=== PATIENT | male | born 1980 | race Caucasian/White ===

== ENCOUNTER → 2017-09-12 16:58 | Outpatient (CLI) | payer BC, SELFPAY ==
--- NOTE | 2017-09-12 17:03 | XR_ITS ---
EXAM: XR cervical spine 5V HISTORY: ITS.REASON: LEFT SIDED NECK PAIN ORDERING PHYSICIAN: Arlene Dawkins PATIENT AGE: 37 years COMPARISON: None FINDINGS: Normal alignment. No fracture or dislocation. No lytic or blastic change. No significant degenerative change. The disc spaces are preserved. There is right apical pleural thickening with surgical clips in the right apex IMPRESSION: Negative cervical spine, no acute finding
== END ==
PROVIDERS: PCP Nurse Practitioner; Visit Provider Nurse Practitioner
DX: M54.2 Cervicalgia (principal)
CPT/HCPCS: 72050

== ENCOUNTER → 2017-09-28 07:43 | Outpatient (CLI) | payer BC, SELFPAY ==
--- NOTE | 2017-09-28 07:45 | MR_ITS ---
MR cervical spine wo con, MR 3-d myelogram/MRCP HISTORY: Bilateral Neck pain. Neck pain is intermittent. Pain when turning head to the left. Symptoms [id number]. ITS.REASON: LEFT SIDE NECK PAIN ORDERING PHYSICIAN: Arlene Dawkins PATIENT AGE: 37 years COMPARISON: Prior X-ray C-spine April 2013. TECHNIQUE: Standard multiplanar multiecho sequences are performed without contrast. 3-D MIP and myelographic images are also rendered and reviewed FINDINGS: Cranial cervical junction is normal. Cervical vertebral bodies appear intact. Generous volume osseous cervical canal Multilevel degenerative disc changes and cervical spondylosis most evident C4/5 C5-C6: . C2/3 disc intact & unremarkable. C3/4. Trace central disc prominence which only slightly indents anterior thecal sac at midline C4/5. Cervical spondylosis. Slight disc space narrowing. Uncovertebral joint hypertrophy most evident to the left-encroaches upon entry left foramen & slightly indents the left anterior corner of the thecal sac. Mild/moderate left foraminal encroachment. Mild on right. C5-C6. Cervical spondylosis. Diffuse endplate osteophytes posteriorly and spurring most evident to the right & left of midline. On the right there is a soft disc protrusion extending beyond this first. This moderate focal mixed disc protrusion indents, effaces the thecal sac to the right and just abuts the cervical cord right paracentral.. This disc protrusion extends 3.5 -4 mm posteriorly. May impinges upon the right ventral nerve root as well.. Mild hard disc to the left only slightly indents thecal sac to the left C6/7 disc intact neural foramen widely patent. C7/T1 disc intact. T1/T2 T2/T3 disc intact cord normal. 3-D MR myelogram image set shows a focal subtle mild indentation upon the thecal sac to the left at C4/5 & right at C5-6. The above features have apparently developed or become more apparent since plain films in 2012. Consider follow-up plain films to again correlate as I believe there should be additional current plain film findings particularly at C4/5 to the left ====IMPRESSION Cervical spondylosis at C5/C6 & C4/5 C5-C6.. Moderate Mixed disc protrusion right paracentral most notable at this level. . With moderate soft disc protrusion extending beyond the posterior spurring to abut the cervical cord right paracentral evident C4/5. Generous uncovertebral joint spurring yields moderate encroachment upon entry left foramen, and indents the left anterior corner of thecal sac. Generous volume underlyingOsseous cervical canal
== END ==
PROVIDERS: Family Provider Family Medicine; PCP Nurse Practitioner; Visit Provider Nurse Practitioner
DX: M54.2 Cervicalgia (principal)
CPT/HCPCS: 72141; 76376

== ENCOUNTER → 2017-10-18 12:25 | Outpatient (POV) | payer BC, SELFPAY | PROVIDERS: Family Provider Family Medicine; PCP Nurse Practitioner; Visit Provider Neurological Surgery | DX: Z00.00 Encounter for general adult medical examination without abnormal findings (principal) ==

== ENCOUNTER → 2018-08-01 15:07 | Outpatient (CLI) | payer BC, SELFPAY | PROVIDERS: PCP Nurse Practitioner; Visit Provider Nurse Practitioner | DX: G47.30 Sleep apnea, unspecified (principal) | CPT/HCPCS: 95806 ==

== ENCOUNTER → 2018-08-05 08:15 | Outpatient (CLI) | payer BC, SELFPAY | PROVIDERS: PCP Family Medicine; Visit Provider Family Medicine | DX: R05 Cough (principal); R06.02 Shortness of breath; R91.1 Solitary pulmonary nodule; R53.83 Other fatigue | CPT/HCPCS: 93017 ==

== ENCOUNTER → 2018-08-14 07:44 | Outpatient (CLI) | payer BC, SELFPAY ==
--- NOTE | 2018-08-14 07:49 | CA_ITS ---
PROCEDURE: 2-D M-mode and color Doppler study INDICATIONS FOR THE TEST: Chest pain COPD Heart Murmur Tobacco Smoking Palpitations Fatigue Syncope Edema Hypertension Diabetes Mellitus Rheumatic Fever SOB++BLOOD Obesity Hyperlipidemia+ Family History HD Additional History asthma PATIENT INFORMATION HEIGHT: 71 WEIGHT:170 GENDER: Male B/P:110/65 2-D/M-MODE INTERPRETATION: 2-D MEASUREMENTS OBSERVED VALUES IN CMS Right Ventricular Dimension (RVDd) 2.6 Interventricular Septum (Thickness)(IVsd) 1.0 Left Ventricular Internal Dimensions(LVIDd) 4.1 Left Ventricular Posterior Wall (Thickness)(LVPWd) 0.9 Aortic Root 2.6 Aortic Cusp Separation 2.4 Left Atrial Dimensions (LAD) 2.7 2D 1. Left atrium is normal size, left ventricle is normal size, is no concentric left ventricular hypertrophy, visually estimated ejection fraction 55% with no regional wall motion abnormality. 2. The right atrium and right ventricle are normal size and contractility. 3. The aortic, mitral and tricuspid valves grossly normal. 4. The pulmonic valve is poorly present. 6. No significant pericardial effusion noted. DOPPLER INTERROGATION: Doppler interrogation of the aortic, mitral and tricuspid valvular presence of mild mitral and tricuspid regurgitation, tricuspid regurgitation jet velocity is inadequate for calculation of the right ventricular systolic pressure, diastolic parameters are within normal range. CONCLUSION: 1. Normal left ventricular size, preserved left ventricular systolic function, visually estimated ejection fraction of 55% regional wall motion abnormality, diastolic parameters are within normal range. 2. Mild mitral and tricuspid regurgitation 3. No significant pericardial effusion noted.
--- NOTE | 2018-08-14 08:18 | CT_ITS ---
CT chest w con HISTORY: ITS.REASON: COUGH,LUNG NODULE,SOB,FATIGUE ORDERING PHYSICIAN: Jake Colvin MD PATIENT AGE: 37 years COMPARISON: None TECHNIQUE: Axial images obtained following the administration of 75 mL of Optiray 350. Sagittal, and coronal reformatted images are also generated and reviewed. All CT scans at the facility use one or more dose reduction, viz: automated exposure control, ma/kV adjustment per patient size (including targeted exams where dose is matched to indication, i.e. head), or iterative reconstruction technique. FINDINGS: No mediastinal or hilar mass. No evidence of aortic aneurysm, dissection, or central pulmonary embolus. Normal heart size. Fibronodular changes are present in the right lung apex. There is some irregular increased density in the right lower lobe anteriorly and laterally also may represent fibrotic changes. Postsurgical changes are present in the right upper lobe inferiorly. Calcified granuloma is present in the left lung base. No central obstructing lesions are evident.. No acute bony anomalies. Upper abdominal images demonstrates a liver lesion in the hepatic dome which measures approximately 2.4 x 1.2 cm with peripheral contrast puddling and may represent a hemangioma. CT or MRI with hemangioma protocol may confirm. No acute bony findings. IMPRESSION: 1. Scattered areas of parenchymal pleural scarring in the lungs with postsurgical changes of the right upper lobe. Calcified granuloma left lower lobe. No acute finding of the chest. 2. 2.4 cm lesion of the hepatic dome with peripheral enhancement and puddling which may represent a hemangioma and may be confirmed with CT or MRI with hemangioma protocol
== END ==
PROVIDERS: PCP Family Medicine; Visit Provider Family Medicine
DX: R05 Cough (principal); R91.1 Solitary pulmonary nodule; R06.02 Shortness of breath; R53.83 Other fatigue
CPT/HCPCS: 71260; 93306; Q9967

== ENCOUNTER → 2018-09-09 09:32 | Outpatient (CLI) | payer BC, SELFPAY ==
--- NOTE | 2018-09-09 09:42 | CT_ITS ---
CT abdomen without and with contrast CLINICAL INDICATION: Follow-up liver lesion ITS.REASON: LIVER TUMOR ORDERING PHYSICIAN: Arlene Dawkins PATIENT AGE: 38 years COMPARISON: 08/14/2018 TECHNIQUE: Axial images obtained without and with contrast with sagittal and coronal reformats. All CT scans at the facility use one or more dose reduction, viz: automated exposure control, ma/kV adjustment per patient size (including targeted exams where dose is matched to indication, i.e. head), or iterative reconstruction technique. PROCEDURE: Oral Contrast: None IV Contrast: 75 mL's Optiray 350. FINDINGS: There are chronic changes in the right lung base laterally consistent with scarring. Unenhanced images demonstrates a 2.8 x 1.8 cm isodense lesion in the right hepatic lobe anteriorly within segment 8. This shows fairly intense peripheral enhancement on the arterial phase images and fairly homogeneous enhancement on the portal phase images similar to the contrast enhancement of the aorta and only mild enhancement on the 10 minute delayed images. This is consistent with a hemangioma. No other liver lesions are evident. The spleen, pancreas, adrenal glands, and right kidney are unremarkable. The left kidney lies in the central aspect of the pelvis consistent with a pelvic kidney. No intestinal obstruction or free air. No evidence of aortic aneurysm. No acute bony findings. IMPRESSION: Hepatic lesion in segment 8 is felt to represent a hemangioma. Consider 6 month follow-up to confirm stability. This can be performed without contrast as we do have an unenhanced study on today's exam. Pelvic kidney on the left
--- NOTE | 2018-09-09 10:00 | HMH.ITSHM ---
Current Home Medications as stated by this patient Fili Sagastume II or customer response representative. []SYNTHYROID
[2018-09-09 10:40] VITALS: PULSE 78; PULSE 82
== END ==
PROVIDERS: PCP Family Medicine; Visit Provider Nurse Practitioner
DX: D49.9 Neoplasm of unspecified behavior of unspecified site (principal); R06.02 Shortness of breath; L90.5 Scar conditions and fibrosis of skin
CPT/HCPCS: 74160; 74170; 94060; 94640; Q9967

== ENCOUNTER → 2018-09-11 12:32 | Outpatient (CLI) | payer BC, SELFPAY | PROVIDERS: PCP Family Medicine; Visit Provider Family Medicine | DX: R91.1 Solitary pulmonary nodule (principal); K76.89 Other specified diseases of liver | CPT/HCPCS: 74150 ==

== ENCOUNTER → 2019-05-26 07:46 | Outpatient (CLI) | payer BC, SELFPAY ==
--- NOTE | 2019-05-26 07:49 | CT_ITS ---
PROCEDURE: CT ABDOMEN WO CON CLINICAL HISTORY: HEPATIC LESION Follow-up liver lesion COMPARISON: ABDPELW/O CT ABD PELVIS W/O CONTRAST from 05/03/[address] abdomen wo/w con from 09/09/2018 TECHNIQUE: Axial images obtained with sagittal and coronal reformats. All CT scans at the facility use one or more dose reduction, viz: automated exposure control, ma/kV adjustment per patient size (including targeted exams where dose is matched to indication, i.e. head), or iterative reconstruction technique. FINDINGS: There is a stable 3 by 1.9 cm hypodense lesion in the right hepatic lobe anteriorly and superiorly as previously described not significantly changed and was previously felt to represent a hemangioma based on the enhancement characteristics. No new liver lesions are evident. The spleen, adrenal glands, and pancreas have an unremarkable appearance. The right kidney has an unremarkable appearance. The left kidney is in the central pelvic region and is incompletely imaged. No intestinal obstruction or free air. IMPRESSION: Stable CT appearance of the right hepatic lobe lesion measuring 3 x 1.9 cm. No change with no acute finding Left-sided pelvic kidney Dictated by: Warren Morgan MD 05/27/2019 12:56 Electronically signed by Warren Morgan MD in [place] 05/27/2019 12:56
== END ==
PROVIDERS: PCP Family Medicine; Visit Provider Nurse Practitioner
DX: K76.9 Liver disease, unspecified (principal)
CPT/HCPCS: 74150

== ENCOUNTER → 2020-02-05 16:27 | Outpatient (CLI) | payer BC, SELFPAY ==
[2020-02-05 17:01] LABS: Basophils % 0.3 % (0.1-2.0); Eosinophils # 0.1 K/mm3 (0.0-0.4); Eosinophils % 0.9 % (0.1-12.0); Hematocrit 47.6 % (42.0-52.0); Hemoglobin 16.5 g/dL (14.1-18.0); Lymphocytes # 2.5 K/mm3 (0.7-4.5); Lymphocytes % 30.1 % (10-50); Mean Corpuscular HGB Conc 34.7 g/dL (31.8-35.4); Mean Corpuscular Hemoglobin 32.3 pg (27.0-31.2); Mean Corpuscular Volume 93.1 fl (80-94); Mean Platelet Volume 7.6 fl (7.4-10.4); Monocytes # 0.5 K/mm3 (0.1-1.0); Monocytes % 6.4 % (1.7-9.3); Neutrophils # 5.1 K/mm3 (1.8-7.8); Neutrophils % 62.3 % (37.0-80.0); Platelet Count 274 K/mm3 (142-424); Red Blood Count 5.12 M/mm3 (4.60-6.20); White Blood Count 8.2 K/mm3 (4.8-10.8)
[2020-02-05 20:18] LABS: Chloride 106 mmol/L (98-107)
[2020-02-05 20:19] LABS: Potassium 4.4 mmoL/L (3.5-5.1); Sodium 141 mmol/L (136-145)
[2020-02-05 20:21] LABS: Alanine Aminotransferase 32 U/L (12-78); Albumin Level 4.5 g/dl (3.5-5.0); Albumin/Globulin Ratio 1.7 (1.1-1.8); Alkaline Phosphatase 65 U/L (38-126); Anion Gap 14.4 mEq/L (5-15); Aspartate Amino Transferase 28 U/L (17-59); Bilirubin,Total 0.5 mg/dl (0.2-1.3); Blood Urea Nitrogen 15 mg/dl (9-20); Carbon Dioxide 25 mmol/L (22.0-30.0); Cholesterol 179 mg/dl (140-200); Estimated Glomerular Filt Rate 93 ml/min (>60); GFR (African American) 113 ML/MIN (>60); Globulin 2.6 g/dL (1.3-3.2); Total Protein,Serum 7.1 g/dl (6.3-8.2); Triglycerides 160 mg/dl (30-150); VLDL Cholesterol 32 mg/dL (0-40)
[2020-02-05 20:22] LABS: Calcium 9.2 mg/dl (8.4-10.2); Glucose 79 mg/dl (74-100); Magnesium 2.2 mg/dl (1.6-2.3)
[2020-02-05 20:33] LABS: Direct LDL Cholesterol 105.12 mg/dL (100-129)
[2020-02-05 21:39] LABS: Chol/HDL Ratio 4.1 (1-3.5); HDL Cholesterol 44 mg/dl (40-60)
== END ==
PROVIDERS: Visit Provider Nurse Practitioner Family
DX: R19.7 Diarrhea, unspecified (principal); R19.5 Other fecal abnormalities; R03.0 Elevated blood-pressure reading, without diagnosis of hypertension
CPT/HCPCS: 36415; 80053; 80061; 83735; 85025

== ENCOUNTER 2020-06-11 13:32 | Emergency (ER) | payer BC, SELFPAY ==
[2020-06-11 14:00] VITALS: BP 129/82; PULSE 80; RESP 19; TEMP 37.1; O2SAT 98; BMI 23.7
--- NOTE | 2020-06-11 14:19 | HMH.EDUTC ---
[facility] [place] Disposition Clinical Impression: Viral syndrome, Exposure to COVID-19 virus Disposition: Home, Self-Care Condition on Discharge: Good Instructions: Preventing the Spread of Coronavirus Discharge Instructions Additional Instructions: Drink plenty of fluids. Take tylenol for pain or fever. Return if you begin to have difficulty breathing. Follow up with your regular doctor. GO TO THE ER FOR ANY WORSENING SYMPTOMS Referrals: Jake Colvin MD [Primary Care Provider] - Time of Disposition: 14:29 Medical Decision Making - Medical Records Medical records reviewed: No: I reviewed the patient's medical records. - Georgi Inquiry Pt receiving controlled substance: No Vital Signs: 06/11/20 14:00 Temperature 98.7 F Temperature Source Oral Pulse Rate [Right Brachial] 80 Respiratory Rate 19 Blood Pressure [Right Arm] 129/82 Blood Pressure Mean [Right Arm] 97 Blood Pressure Source [Right Arm] Automatic Cuff Blood Pressure Position [Right Arm] Sitting 02 Sat by Pulse Oximetry 98 Oxygen Delivery Method Room Air Orders (Tests/Meds): ORDERS Category Date Time Status Covid-19 Nasal PCR Sendout [facility] 06/11/20 13:48 Ordered [facility] [place] HPI - General Stated complaint: covid exposure Time Seen by Provider: 06/11/20 14:19 Mode of Arrival: Ambulatory Source of Information: Patient Limitations: No Limitations Description of Symptoms (Recalled from Triage Doc. by RN): PATIENT C/O BODY ACHES, SORE THROAT AND FATIGUE X 2 DAYS. WAS EXPOSED TO COVID THROUGH WORK HEENT Symptoms (Recalled from RN notes): Yes Resp Symptoms (Recalled from RN notes): No Skin Symptoms (Recalled from RN notes): No MS Symptoms (Recalled from RN notes): No Functional Status (Recalled from RN notes): WNL - History of Present Illness Provider Complaint: He states that he has been exposed to covid at his work place. He has had chilling, sore throat, and mild cough for the past 3 days. He feels some better today. - Related Data Home Medications Medication Instructions Recorded Confirmed Levothyroxine Sodium 100 mcg PO DAILY 06/11/20 06/11/20 [Levothyroxine 100mcg (0.1MG) Tab] lisinopriL [Lisinopril 10mg Tab] 10 mg PO DAILY 06/11/20 06/11/20 Allergies Allergy/AdvReac Type Severity Reaction Status Date / Time Penicillins [PENICILLINS] Allergy Unknown Verified 11/07/19 11:26 - Worker's Comp Is this a Worker's Comp case?: No [facility] History - Hepatitis A Screen Drug use history?: No High risk sexual behaviors?: No History of sexually transmitted infection?: No Currently employed?: No Childcare worker?: No Do you have indoor plumbing?: Yes Do you have electricity?: Yes Attestation statement:: This patient has been screened for Hepatitis A risk factors. I have reviewed the patient's past medical history: Yes Other Medical History: Reports: Thyroid Disease Laterality Cases: Bilateral: Myringotomy (Ear Tubes) Other Surgeries: Yes: No Previous Surgery Amputation: No Fractures: No Comment: collapsed lung x 2 - Social History Smoking Status: Former smoker Tobacco Type: smokeless tobacco Alcohol Intake: never Alcohol Intake Frequency:: holidays/special occasions only Substance Use Type: denies use Occupational Status: other Housing: other Household Members: family Family Hx:: No significant family history ROS Obtained: Yes All systems reviewed & no additional complaints - Constitutional Constitutional: Reports system reviewed and no additional complaints, except as docu - Eyes Eyes: Reports system reviewed and no additional complaints, except as docu - ENT Ears, Nose, Mouth, and Throat: Reports system reviewed and no additional complaints, except as docu - Cardiovascular Cardiovascular: Reports system reviewed and no additional complaints, except as docu - Respiratory Respiratory: Yes system reviewed and no additional complaints, except as docu - Gastrointestinal Gastrointestingal:
[2020-06-11 14:24] LABS: UTC Strep Screen (Rapid) Negative (Negative)
[2020-06-11 14:46] VITALS: BP 129/82; PULSE 80; RESP 19; TEMP 37.1; O2SAT 98
[2020-06-13 09:33] LABS: Covid-19 Nasal PCR Sendout UK Detected
--- NOTE | 2020-06-13 09:51 | PC.NURSE ---
Patient notified of positive COVID results. Educated on quarantine.
== END 2020-06-11 14:48 | disposition home or self-care (01) ==
PROVIDERS: Emergency Provider Nurse Practitioner Family; PCP Family Medicine
DX: U07.1 COVID-19 (principal); I10 Essential (primary) hypertension; E03.9 Hypothyroidism, unspecified; Z88.0 Allergy status to penicillin; Z87.891 Personal history of nicotine dependence; Z79.899 Other long term (current) drug therapy
CPT/HCPCS: 87880; 99202; U0003

== ENCOUNTER → 2020-06-15 13:32 | Outpatient (CLI) | payer BC, SELFPAY ==
--- NOTE | 2020-06-15 13:37 | XR_ITS ---
PROCEDURE: XR CHEST PORTABLE CLINICAL HISTORY: COVID Cough COMPARISON: CR CXR CHEST(2 VIEWS-NOT PORTABLE) from 12/21/2016 CR CXR CHEST(2 VIEWS-NOT PORTABLE) from 01/26/2017 CR CXR2V XR chest 2V from 07/20/[address] chest w con from 08/14/2018 FINDINGS: The cardiomediastinal silhouette and pulmonary vascularity are within normal limits. The lungs are clear without infiltrates, suspicious nodules, or pleural effusions. There is a calcified granuloma in the left lower lobe. Surgical clips are present in the right apex with mild right apical pleural thickening not significantly changed. No acute bony finding. IMPRESSION: No acute findings. Dictated by: Warren Morgan MD 06/15/2020 14:02 Warren Morgan MD in [place] 06/15/2020 14:02
== END ==
PROVIDERS: PCP Family Medicine; Visit Provider Family Medicine
DX: Z20.828 Contact with and (suspected) exposure to other viral communicable diseases (principal); U07.1 COVID-19; R05 Cough
CPT/HCPCS: 71045

== ENCOUNTER → 2020-06-23 10:32 | Outpatient (CLI) | payer BC, SELFPAY ==
[2020-06-24 14:09] LABS: Covid-19 Nasal PCR Sendout P&C POSITIVE
--- NOTE | 2020-06-24 20:49 | PC.NURSE ---
PATIENT NOTIFIED OF POSITIVE COVID RESULTS BY DR VELASQUEZ
== END ==
PROVIDERS: PCP Family Medicine; Visit Provider Family Medicine
DX: Z20.828 Contact with and (suspected) exposure to other viral communicable diseases (principal); U07.1 COVID-19
CPT/HCPCS: U0004

== ENCOUNTER → 2020-10-28 08:52 | Outpatient (CLI) | payer BC, SELFPAY ==
[2020-10-28 09:19] LABS: Basophils % 0.3 % (0.1-2.0); Eosinophils # 0.1 K/mm3 (0.0-0.4); Eosinophils % 1.2 % (0.1-12.0); Hematocrit 47.2 % (42.0-52.0); Hemoglobin 15.8 g/dL (14.1-18.0); Lymphocytes % 30.7 % (10-50); Mean Corpuscular HGB Conc 33.5 g/dL (31.8-35.4); Mean Corpuscular Hemoglobin 31.5 pg (27.0-31.2); Mean Corpuscular Volume 94.1 fl (80-94); Mean Platelet Volume 7.4 fl (7.4-10.4); Monocytes # 0.3 K/mm3 (0.1-1.0); Monocytes % 5.2 % (1.7-9.3); Neutrophils # 4.1 K/mm3 (1.8-7.8); Neutrophils % 62.6 % (37.0-80.0); Platelet Count 255 K/mm3 (142-424); Red Blood Count 5.02 M/mm3 (4.60-6.20); Red Cell Distribution Width 13.2 % (11.5-17.5); White Blood Count 6.6 K/mm3 (4.8-10.8)
[2020-10-28 09:58] LABS: Alanine Aminotransferase 32 U/L (12-78); Albumin Level 4.2 g/dl (3.5-5.0); Albumin/Globulin Ratio 1.7 (1.1-1.8); Alkaline Phosphatase 60 U/L (38-126); Anion Gap 9.5 mEq/L (5-15); Aspartate Amino Transferase 29 U/L (17-59); Bilirubin,Total 0.5 mg/dl (0.2-1.3); Blood Urea Nitrogen 12 mg/dl (9-20); Calcium 9.2 mg/dl (8.4-10.2); Carbon Dioxide 26 mmol/L (22.0-30.0); Chloride 108 mmol/L (98-107); Chol/HDL Ratio 4.2 (1-3.5); Cholesterol 168 mg/dl (140-200); Estimated Glomerular Filt Rate 106 ml/min (>60); GFR (African American) 128 ML/MIN (>60); Globulin 2.5 g/dL (1.3-3.2); Glucose 103 mg/dl (74-100); HDL Cholesterol 40 mg/dl (40-60); Potassium 4.5 mmoL/L (3.5-5.1); Sodium 139 mmol/L (136-145); Total Protein,Serum 6.7 g/dl (6.3-8.2); Triglycerides 80 mg/dl (30-150); VLDL Cholesterol 16 mg/dL (0-40)
[2020-10-28 10:09] LABS: Direct LDL Cholesterol 96.71 mg/dL (100-129)
[2020-10-28 10:16] LABS: 25-OH Vitamin D, Total 43.4 ng/mL (30-100)
[2020-10-28 10:29] LABS: Thyroid Stimulating Hormone 1.87 uIU/mL (0.465-4.68)
[2020-10-28 10:48] LABS: Vitamin B12 321 pg/mL (239-931)
== END ==
PROVIDERS: Visit Provider Nurse Practitioner Family
DX: Z00.00 Encounter for general adult medical examination without abnormal findings (principal); I10 Essential (primary) hypertension; E03.9 Hypothyroidism, unspecified; R53.83 Other fatigue; R20.2 Paresthesia of skin
CPT/HCPCS: 36415; 80053; 80061; 82306; 82607; 84443; 85025

== ENCOUNTER → 2021-01-13 09:57 | Outpatient (CLI) | payer BC, SELFPAY ==
--- NOTE | 2021-01-13 10:13 | XR_ITS ---
PROCEDURE: XR HAND RT MIN 3V CLINICAL INDICATION: PRIMARY OSTEOARTHRITIS,RT HAND COMPARISON: CR HANDL3 HAND-LT-3 VIEWS from 04/01/2017 FINDINGS: No fracture or dislocation. No lytic or blastic change. There is normal mineralization. The joint spaces are well-preserved. No significant degenerative/arthritic changes. No erosive changes evident. Other findings:None. IMPRESSION: Negative right hand Dictated by: Warren Morgan MD 01/13/2021 11:28 Warren Morgan MD in [place] 01/13/2021 11:28
--- NOTE | 2021-01-13 10:13 | XR_ITS ---
PROCEDURE: XR HAND LT MIN 3V CLINICAL INDICATION: PRIMARY OSTEOARTHRITIS,LT HAND COMPARISON: CR HANDL3 HAND-LT-3 VIEWS from 04/01/2017 FINDINGS: No fracture or dislocation. No lytic or blastic change. There is normal mineralization. The joint spaces are well-preserved. No significant degenerative/arthritic changes. No erosive changes evident. Other findings:None. IMPRESSION: Negative left hand Dictated by: Warren Morgan MD 01/13/2021 11:28 Warren Morgan MD in [facility] 01/13/2021 11:28
[2021-01-13 10:32] LABS: Basophils # 0.1 K/mm3 (0-0.2); Basophils % 0.8 % (0.1-2.0); Eosinophils # 0.1 K/mm3 (0.0-0.4); Eosinophils % 1.2 % (0.1-12.0); Hematocrit 46.5 % (42.0-52.0); Hemoglobin 16.3 g/dL (14.1-18.0); Lymphocytes # 2.2 K/mm3 (0.7-4.5); Lymphocytes % 30.5 % (10-50); Mean Corpuscular HGB Conc 34.9 g/dL (31.8-35.4); Mean Corpuscular Hemoglobin 31.3 pg (27.0-31.2); Mean Corpuscular Volume 89.5 fl (80-94); Mean Platelet Volume 7.5 fl (7.4-10.4); Monocytes # 0.4 K/mm3 (0.1-1.0); Monocytes % 5.4 % (1.7-9.3); Neutrophils # 4.5 K/mm3 (1.8-7.8); Neutrophils % 62.1 % (37.0-80.0); Platelet Count 262 K/mm3 (142-424); Red Cell Distribution Width 13.3 % (11.5-17.5); White Blood Count 7.3 K/mm3 (4.8-10.8)
[2021-01-14 05:37] LABS: RA Latex Turbid. <10.0 IU/mL (0.0-13.9)
[2021-01-15 00:07] LABS: Anti-Cyclic Citrullinated Pept 5 units (0-19)
== END ==
PROVIDERS: Visit Provider Internal Medicine Adolescent Medicine
DX: M19.042 Primary osteoarthritis, left hand (principal); M19.041 Primary osteoarthritis, right hand
CPT/HCPCS: 36415; 73130; 85025; 86038; 86200; 86431

== ENCOUNTER → 2021-01-14 17:04 | Outpatient (CLI) | payer BC, SELFPAY ==
[2021-01-17 15:28] LABS: Antinuclear Antibodies, IFA Positive (.)
== END ==
PROVIDERS: Visit Provider Internal Medicine Adolescent Medicine
DX: M19.041 Primary osteoarthritis, right hand (principal); M19.042 Primary osteoarthritis, left hand
CPT/HCPCS: 86038

== ENCOUNTER → 2021-03-23 19:30 | Outpatient (CLI) | payer BC, SELFPAY | PROVIDERS: Visit Provider Nurse Practitioner Family | DX: Z20.822 Contact with and (suspected) exposure to COVID-19 (principal) | CPT/HCPCS: C9803; U0003; U0005 ==

== ENCOUNTER 2021-05-01 15:33 | Emergency (ER) | payer BC, SELFPAY ==
[2021-05-01 16:27] VITALS: BMI 24.4
--- NOTE | 2021-05-01 16:27 | XR_ITS ---
PROCEDURE INFORMATION: Exam: XR Left Humerus Exam date and time: 05/01/2021 4:27 PM Age: 40 years old Clinical indication: Pain; Shoulder; Left; Additional info: Fall wrestling with kids fell on shoulde TECHNIQUE: Imaging protocol: XR Left humerus. Views: 2 or more views. COMPARISON: CR XR SHOULDER LT MIN 2V 05/01/2021 4:29 PM FINDINGS: Bones/joints: There is no evidence of acute fracture. There is no evidence of joint malalignment or dislocation. Soft tissues: No focal soft tissue swelling. IMPRESSION: 1. No evidence of acute fracture. 2. No evidence of acute dislocation.
--- NOTE | 2021-05-01 16:27 | XR_ITS ---
PROCEDURE INFORMATION: Exam: XR Left Shoulder Exam date and time: 05/01/2021 4:27 PM Age: 40 years old Clinical indication: Pain; Shoulder; Left; Additional info: Fall wrestling with kids fell on shoulder TECHNIQUE: Imaging protocol: XR Left shoulder. Views: 2 or more views. COMPARISON: CR XR CHEST PORTABLE 06/15/2020 1:53 PM FINDINGS: Bones/joints: There is no evidence of acute fracture. There is no evidence of joint malalignment or dislocation. Soft tissues: No focal soft tissue swelling. IMPRESSION: 1. No evidence of acute fracture. 2. No evidence of acute dislocation.
[2021-05-01 16:40] VITALS: BP 144/86; PULSE 64; RESP 19; TEMP 36.8; O2SAT 98; BMI 24.4
--- NOTE | 2021-05-01 17:05 | HMH.EDUTC ---
[facility] [place] Clinical Impression: Shoulder pain Qualifiers: Chronicity: unspecified Laterality: left Qualified Code(s): M25.512 - Pain in left shoulder Disposition: Home, Self-Care Condition on Discharge: Good Instructions: DI for Shoulder Pain, Methylprednisolone Additional Instructions: *RICE, Rest the extremity, Ice 15-20 minutes 3-4 times daily, Compress- wear the amanda wrap as discussed as much as possible to help reduce swelling and pain, Elevate the extremity when at rest Over the counter Lidocaine patches may help with pain *Elevate when resting *Ibuprofen as directed on package every 6-8 hours as needed for pain an inflammation If need something more can take Tylenol in between doses of Ibuprofen to help Immediately follow up with your family doctor for new or worsening of symptoms, or no noticeable improvement over the next 3-5 days Return if needed Straight to ER if any life threatening symptoms Prescriptions: methylPREDNISolone [Medrol 4mg tab] 4 mg PO DIRECTED #21 tab Transmission Status: Pending to [facility] Referrals: Jake Coffman MD [Primary Care Provider] - As needed Forms: Work/School Release Time of Disposition: 17:14 Medical Decision Making - Georgi Inquiry Pt receiving controlled substance: No Georgi was queried for this patient: No Vital Signs: 05/01/21 16:40 Temperature 98.3 F Temperature Source Oral Pulse Rate [Right Brachial] 64 Respiratory Rate 19 Blood Pressure [Right Arm] 144/86 H Blood Pressure Mean [Right Arm] 105 Blood Pressure Source [Right Arm] Automatic Cuff Blood Pressure Position [Right Arm] Sitting 02 Sat by Pulse Oximetry 98 Oxygen Delivery Method Room Air - Radiology Data #1 Image(s): Shoulder Image Reviewed: Yes I have reviewed radiologist's interpretation IMPRESSION: 1. No evidence of acute fracture. 2. No evidence of acute dislocation. #2 Image(s): Humerus Image Reviewed: Yes I have reviewed radiologist's interpretation IMPRESSION: 1. No evidence of acute fracture. 2. No evidence of acute dislocation. [facility] [place] HPI - General Stated complaint: 04/16 fell injured L shoulder Time Seen by Provider: 05/01/21 17:05 Mode of Arrival: Ambulatory Source of Information: Patient Limitations: No Limitations Description of Symptoms (Recalled from Triage Doc. by RN): PATIENT C/O PAIN TO LEFT SHOULDER AND UPPER ARM. STATES HE WAS WRESTLING WITH HIS KIDS 2 WEEKS AGO AND LANDED ON IT HEENT Symptoms (Recalled from RN notes): No Resp Symptoms (Recalled from RN notes): No Skin Symptoms (Recalled from RN notes): No MS Symptoms (Recalled from RN notes): Yes Functional Status (Recalled from RN notes): WNL - History of Present Illness Provider Complaint: Patient states that he was wrestling with his kids about 2 weeks ago when he fell and landed on his left shoulder area States on and off every since he has been having pain at times that keeps him up at night States that pain seems to come and go but bad at times so he came in to get checked - Related Data Home Medications Medication Instructions Recorded Confirmed Levothyroxine Sodium 100 mcg PO DAILY 06/11/20 05/01/21 [Levothyroxine 100mcg (0.1MG) Tab] Previous Rx's Medication Instructions Recorded methylPREDNISolone [Medrol 4mg 4 mg PO DIRECTED #21 tab 05/01/21 tab] Allergies Allergy/AdvReac Type Severity Reaction Status Date / Time Penicillins [PENICILLINS] Allergy Unknown Verified 03/23/21 19:00 - Worker's Comp Is this a Worker's Comp case?: No [facility] History - Hepatitis A Screen Drug use history?: No High risk sexual behaviors?: No History of sexually transmitted infection?: No Currently employed?: No Childcare worker?: No Do you have indoor plumbing?: Yes Do you have electricity?: Yes Attestation statement:: This patient has been screened for Hepatitis A risk factors. I have reviewed the patient's past medical history: Yes Other Medi
[2021-05-01 17:15] VITALS: BP 144/86; PULSE 64; RESP 19; TEMP 36.8; O2SAT 98
== END 2021-05-01 17:18 | disposition home or self-care (01) ==
PROVIDERS: Emergency Provider Nurse Practitioner; PCP Internal Medicine Adolescent Medicine
DX: M25.512 Pain in left shoulder (principal); X50.3XXA Overexertion from repetitive movements, initial encounter; Y92.019 Unspecified place in single-family (private) house as the place of occurrence of the external cause; E03.9 Hypothyroidism, unspecified; Z88.0 Allergy status to penicillin
CPT/HCPCS: 73030; 73060; 99202; G0463

== ENCOUNTER 2021-12-18 16:38 | Emergency (ER) | payer BC, OTHER, SELFPAY ==
[2021-12-18 16:39] VITALS: BP 136/102; PULSE 63; RESP 20; TEMP 36.8; O2SAT 98; BMI 25.7
--- NOTE | 2021-12-18 17:03 | CT_ITS ---
PROCEDURE INFORMATION: Exam: CT Abdomen And Pelvis Without Contrast Exam date and time: 12/18/2021 5:09 PM Age: 41 years old Clinical indication: Abdominal pain; Flank; Right; Additional info: Right flank pain/ R/O stone TECHNIQUE: Imaging protocol: Computed tomography of the abdomen and pelvis without contrast. Radiation optimization: All CT scans at this facility use at least one of these dose optimization techniques: automated exposure control; mA and/or kV adjustment per patient size (includes targeted exams where dose is matched to clinical indication); or iterative reconstruction. COMPARISON: CT ABDOMEN PELVIS W CON 09/16/2019 8:25 AM FINDINGS: Liver: 3.4 x 2.1 cm right hepatic lobe low-density mass. Gallbladder and bile ducts: Normal. No calcified stones. No ductal dilation. Pancreas: Normal. No ductal dilation. Spleen: Multiple calcified splenic granulomata. Adrenal glands: Normal. No mass. Kidneys and ureters: 3 mm obstructing stone in the proximal right ureter seen on image 58, series 3 and image 37, series 1001. There is mild right-sided hydroureteronephrosis. Pelvic kidney. Stomach and bowel: Unremarkable. No obstruction. No mucosal thickening. Appendix: No evidence of appendicitis. Intraperitoneal space: Unremarkable. No free air. No significant fluid collection. Vasculature: Unremarkable. No abdominal aortic aneurysm. Lymph nodes: Unremarkable. No enlarged lymph nodes. Urinary bladder: Unremarkable as visualized. Reproductive: Unremarkable as visualized. Bones/joints: Unremarkable. No acute fracture. Soft tissues: Unremarkable. IMPRESSION: 1. 3 mm obstructing stone in the proximal right ureter. 2. Low-density right hepatic lobe mass. Prior studies have shown this to represent a hemangioma. 3. Pelvic kidney.
[2021-12-18 17:11] LABS: Microscopic, Urine URINE MICROSCOPIC (MICROSCOPIC)
[2021-12-18 17:18] LABS: Alanine Aminotransferase 45 U/L (12-78); Albumin Level 4.1 g/dl (3.5-5.0); Albumin/Globulin Ratio 1.4 (1.1-1.8); Alkaline Phosphatase 88 U/L (38-126); Anion Gap 11.8 mEq/L (5-15); Appearance,Urine CLEAR (Clear); Aspartate Amino Transferase 37 U/L (17-59); Basophils # 0.2 K/mm3 (0-0.2); Basophils % 1.6 % (0.1-2.0); Bilirubin,Total 0.3 mg/dl (0.2-1.3); Bilirubin,Urine Negative (Negative); Blood Urea Nitrogen 9 mg/dl (9-20); Blood, Urine 3+ (Negative); Calcium 9.1 mg/dl (8.4-10.2); Carbon Dioxide 26 mmol/L (22.0-30.0); Chloride 106 mmol/L (98-107); Color,Urine YELLOW (Yellow); Creatinine Clearance Estimated 126 mL/min (50-200); Eosinophils # 0.1 K/mm3 (0.0-0.4); Eosinophils % 0.8 % (0.1-12.0); Estimated Glomerular Filt Rate 92 ml/min (>60); GFR (African American) 111 ML/MIN (>60); Glucose 111 mg/dl (74-100); Glucose,Urine (UA) Negative (Negative); Hematocrit 46.6 % (42.0-52.0); Hemoglobin 15.9 g/dL (14.1-18.0); Ketones,Urine Negative (Negative); Leukocyte Esterase,Urine Negative (Negative); Lymphocytes # 2.8 K/mm3 (0.7-4.5); Lymphocytes % 23.5 % (10-50); Mean Corpuscular HGB Conc 34.2 g/dL (31.8-35.4); Mean Corpuscular Hemoglobin 31.4 pg (27.0-31.2); Mean Corpuscular Volume 91.9 fl (80-94); Monocytes % 8.4 % (1.7-9.3); Neutrophils # 7.9 K/mm3 (1.8-7.8); Neutrophils % 65.7 % (37.0-80.0); Nitrate,Urine Negative (Negative); Platelet Count 331 K/mm3 (142-424); Potassium 3.8 mmoL/L (3.5-5.1); Protein,Urine 1+ (Negative); Red Blood Count 5.07 M/mm3 (4.60-6.20); Red Cell Distribution Width 13.3 % (11.5-17.5); Sodium 140 mmol/L (136-145); Specific Gravity, Urine >= 1.030 (1.005-1.030); Total Protein,Serum 7.1 g/dl (6.3-8.2); Urobilinogen,Urine 0.2 EU/dl (0.2); White Blood Count 12.1 K/mm3 (4.8-10.8)
[2021-12-18 17:27] VITALS: BP 128/85; PULSE 76; O2SAT 97
[2021-12-18 17:29] LABS: Bacteria,Urine Trace /lpf; RBC,Urine TNTC #/hpf (0-3)
--- NOTE | 2021-12-18 17:31 | PC.NURSE ---
pt states pain has improved
[2021-12-18 17:46] VITALS: BP 127/76; PULSE 61; O2SAT 98
--- NOTE | 2021-12-18 17:58 | HMH.EDGENADL ---
ED Disposition Clinical Impression: Right ureteral calculus Disposition: Home, Self-Care Condition on Discharge: Good Instructions: DI for Kidney Stones Additional Instructions: Flomax as prescribed. Tylenol No. 3 take-home pack, then Percocet and Toradol as needed for pain. Phenergan take-home pack, then Zofran as needed for nausea. Additional instructions for KIDNEY STONE (URETERAL CALCULUS): See Dr. Sam as soon as possible for further evaluation. Drink plenty of fluids. Strain your urine and save any stones you catch. Return immediately if you develop a fever or have uncontrollable vomiting or uncontrollable pain. Additional instructions for CONTROLLED SUBSTANCES: You have been prescribed a medication that is a controlled substance. Controlled substances include pain medications known as opiates and sedative nerve medications known as benzodiazepines. Tramadol, fioricet, and gabapentin are also controlled substances. Some common opiates include: Codeine (such as Tylenol #3) Hydrocodone (Vicodin, Lortab, Lorcet, Elkins) Oxycodone (Percocet, Percodan, Oxycodone, Oxy IR) Some common benzodiazepines include: Diazepam (Valium) Lorazepam (Ativan) Alprazolam (Xanax) Clonazepam (Klonopin) Oxazepam (Serax) All of these controlled substances are highly addictive and frequently abused. Misuse can and frequently does lead to addiction as well as overdose and . Medication should be stored in a locked cabinet or other secure storage unit. Do not store the medication in a motor vehicle. Short term supplies, 3 days or less, are prescribed because of the highly addictive nature of the medication. Any of the controlled substance medication NOT taken should be disposed of properly and NOT SAVED. The recommended method of disposing of unused medications is: Place the medicines in a sealable plastic bag. If the medicine is a solid, crush it or add water to dissolve it. Add something undesirable (cat litter, coffee grounds, etc.) Dispose of sealed bag in household trash Do not flush or pour unused medicines down a sink or drain. Controlled substances should not be shared, given away or sold. Because of the addictive nature and frequent abuse, these medications are sometimes stolen. These medications should be kept in a safe place where they cannot be stolen. Do not keep them in your car or purse. Lost or stolen prescriptions for controlled substances WILL NOT BE REFILLED in this emergency department, regardless of whether a police report was filed. Prescriptions: Oxycodone HCl/Acetaminophen [Percocet 5/325mg tablet] 1 tab PO Q6HP PRN #10 tablet PRN Reason: Moderate To Severe Pain Transmission Status: Sent to [facility] Ketorolac Tromethamine [Toradol 10mg tablet] 10 mg PO Q6HP PRN #10 tab PRN Reason: Moderate Pain Transmission Status: Pending to [facility] Tamsulosin HCl [Flomax 0.4mg capsule] 0.4 mg PO HS #10 cap Transmission Status: Pending to [facility] Ondansetron [Zofran 4mg ODT] 4 mg PO TIDP PRN #10 tab PRN Reason: Nausea And Vomiting Transmission Status: Pending to [facility] Referrals: Jake Coffman MD [Primary Care Provider] - Omega Sam MD [Staff Physician] - - Critical Care Critical Care Time: No Attestation: On 12/18/21, the high probability of a clinically significant, sudden or life threatening deterioration of the following system(s) required my full and direct attention, intervention and personal management. The time I documented below is in addition to time spent performing reported procedures but includes the following listed in this critical care notation. Medical Decision Making - Georgi Inquiry Pt receiving controlled substance: Yes Georgi was queried for this patient: Yes Risks and benefits of using a controlled substance: were discussed with pt by me Vital Signs: 12/18/21 16:39 12/18/21 17:27 12/18/21 17
[2021-12-18 18:16] VITALS: BP 133/86; PULSE 60; O2SAT 97
[2021-12-18 18:59] VITALS: BP 133/86; PULSE 60; RESP 20; TEMP 36.8; O2SAT 97
== END 2021-12-18 19:00 | disposition home or self-care (01) ==
PROVIDERS: Emergency Provider Emergency Medicine; PCP Internal Medicine Adolescent Medicine
DX: N20.1 Calculus of ureter (principal); Z87.442 Personal history of urinary calculi
CPT/HCPCS: 74176; 80053; 81001; 85025; 96361; 96374; 96375; 99284; J2405

== ENCOUNTER 2022-04-24 15:03 | Emergency (ER) | payer BC, SELFPAY ==
[2022-04-24 16:20] VITALS: BMI 25.1
[2022-04-24 16:23] VITALS: BP 156/97; PULSE 68; RESP 20; TEMP 36.7; O2SAT 99; BMI 25.1
--- NOTE | 2022-04-24 17:02 | HMH.EDGENADL ---
Discharge Plan Disposition Patient Disposition: Home, Self-Care Prescriptions Prescriptions: New prednisone [prednisone] 20 mg tablet 20 mg PO BID Qty: 10 0RF ketorolac 10 mg tablet 10 mg PO TID 5 Days Qty: 10 0RF No Action methylprednisolone 4 MG tablet 4 mg PO DIRECTED Qty: 21 0RF Rx Instructions: Take as directed on package instructions ketorolac 10 MG tablet 10 mg PO Q6HP PRN (Reason: Moderate Pain) Qty: 10 0RF oxycodone-acetaminophen 1 EACH tablet 1 tab PO Q6HP PRN (Reason: Moderate To Severe Pain) Qty: 10 0RF tamsulosin 0.4 MG capsule 0.4 mg PO HS Qty: 10 0RF ondansetron 4 MG tablet,disintegrating 4 mg PO TIDP PRN (Reason: Nausea And Vomiting) Qty: 10 0RF levothyroxine 100 MCG tablet 100 mcg PO DAILY Referrals Follow up/Referrals: Jake Coffman MD [Primary Care Provider] - See instructions Per Hilliard MD [Staff Physician] - See instructions Clinical Impressions Clinical Impression: Cervical radicular pain Instructions Patient Instructions: DI for Cervical Radiculopathy Discharge ED Provider: Dakota Arroyo General Adult HPI General Chief complaint: PAIN Stated complaint: neck pain and R Arm Time Seen by Provider: 04/24/22 17:02 Mode of Arrival: Ambulatory Source of Information: Patient, Spouse and Medical Record Limitations: No Limitations Description of Symptoms (Recalled from ER Triage Doc. by RN): Reports hx of chronic neck pain x10 years. States that he woke up yesterday morning with pain shooting down rt arm. Pt also report increased pain with movement. History of Present Illness HPI narrative: pt with acute neck pain with rad to rt upper ext w/o fever/rash or trauma- has hx of neck issues in past Onset (ago): day(s) Location: neck Radiation: extremity Severity: severe Associated symptoms: denies other symptoms Related Data Home Medications Medication Instructions Recorded Confirmed levothyroxine 100 mcg tablet 100 mcg PO DAILY THYROID 06/11/20 05/01/21 Previous Rx's Medication Instructions Recorded methylprednisolone 4 mg tablet 4 mg PO DIRECTED #21 tabs 05/01/21 ketorolac 10 mg tablet 10 mg PO Q6HP PRN Moderate Pain 12/18/21 #10 tabs ondansetron 4 mg disintegrating 4 mg PO TIDP PRN Nausea And 12/18/21 tablet Vomiting #10 tabs oxycodone-acetaminophen 5 mg-325 1 tab PO Q6HP PRN Moderate To 12/18/21 mg tablet Severe Pain #10 tabs tamsulosin 0.4 mg capsule 0.4 mg PO HS #10 caps 12/18/21 ketorolac 10 mg tablet 10 mg PO TID 5 days #10 tabs 04/24/22 prednisone 20 mg tablet 20 mg PO BID #10 tabs 04/24/22 Allergies Allergy/AdvReac Type Severity Reaction Status Date / Time Penicillins [PENICILLINS] Allergy Unknown Verified 03/23/21 19:00 PFSH PFSH Social History Smoking Status: Never smoker alcohol intake: current substance use type: denies use current occupational status: employed Travel in the last 8 weeks: None household members: family housing: other current occupation: [employer] current occupational exposures/hazards: No ROS Obtained: Yes All systems reviewed & no additional complaints except as documented ENT Ears, Nose, Mouth, and Throat: Reports neck pain Musculoskeletal Musculoskeletal: Reports as per HPI, Reports limited range of motion and Reports neck pain Physical Exam General General appearance: alert Head Head exam: normocephalic Eye Eye exam: Present PERRL and EOMI ENT ENT exam: Present mucous membranes moist Neck Neck exam: Present trachea midline and tenderness; Absent full ROM Respiratory Respiratory exam: Absent respiratory distress Cardiovascular Cardiovascular exam: Present regular rate Abdominal Exam Abdominal exam: Present soft Neurological Exam Neurological exam: Present alert, oriented X3 and CN II-XII intact Skin Skin exam: Absent rash Medical Decision Making Medical Records Medical records reviewed: Yes I reviewed the patient's medical records. Mina
[2022-04-24 17:07] VITALS: BP 164/100; PULSE 68; RESP 20; O2SAT 98
--- NOTE | 2022-04-24 17:15 | PC.NURSE ---
rounded on pt at this time. Updated on POC. No other needs at this time
[2022-04-24 18:14] VITALS: BP 158/70; PULSE 70; RESP 16; TEMP 36.8; O2SAT 98
== END 2022-04-24 18:17 | disposition home or self-care (01) ==
PROVIDERS: Emergency Provider Emergency Medicine; PCP Internal Medicine Adolescent Medicine
DX: M54.12 Radiculopathy, cervical region (principal); M79.601 Pain in right arm; R11.2 Nausea with vomiting, unspecified; Z79.52 Long term (current) use of systemic steroids; Z79.899 Other long term (current) drug therapy; Z88.0 Allergy status to penicillin
CPT/HCPCS: 96372; 99284

== ENCOUNTER 2022-05-31 16:30 | Outpatient (RCR) | payer BC, SELFPAY ==
--- NOTE | 2022-05-05 10:54 | HMH.PTOPEV ---
PT Outpatient Evaluation Rehab PT Outpatient Evaluation Start: 05/05/22 09:56 Freq: Status: Active Protocol: Document 05/05/22 10:30 DONALDO (Rec: 05/05/22 10:51 AROLDOKAMALABASIA [id number]) E-signed By Ralph Jesus, PT Outpatient Therapy Subjective History Subjective History Patient is a 41 year old male presenting to outpatient PT with reports of acute cervical spine pain starting approximately 1 month ago with RUE radicular symptoms starting 2 weeks ago. Most recent cervical spine imaging indicates C 4/5 C 5/6 spondylosis with mult-level bone spurring. Patient reports pain to the C7 dermatome. No specific mechanism of injury to report. No other comorbidities to report. Chief Complaint Pain,Stiff Symptom Type Ache,Dull Symptoms Relieved By Rest/Positioning,Heat, Prescription Meds Symptoms Aggravated By Physical Activity,Lifting Prior Functional Limitations None Current Functional Limitations Reaching,Lifting,Housework, Desk Work/Reading,Sleeping, Recreation Activity Symptom Description Intermittent Level of pain today (0-10) 4 Pain scale - at its best (0-10) 0 Pain scale - at its worst (0-10) 10 Cervical Eval Palpation Cervical Muscles R Upper Trapezius Cervical/Thoracic Palpation Findings Tenderness,Trigger Point Posture Head/C-Spine Posture Sitting Position C-Spine Flattened Head/C-Spine Posture Standing Position C-Spine Flattened Flexibility Deficits Upper Trapezius Muscle Length (R) Moderate Tightness Scalene Group Muscle Length (R) Moderate Tightness Pectoralis Minor Muscle Length (R) Moderate Tightness Passive Joint Mobility Cervical PIVM Dec: R OA L OA R AA L AA R C2/3 L C2/3 R C3/4 L C3/4 R C4/5 L C4/5 R C5/6 L C5/6 R C6/7 L C6/7
== END 2022-05-31 16:35 | disposition home or self-care (01) ==
LOC: PT 16:30
PROVIDERS: Visit Provider Nurse Practitioner Family
DX: M54.2 Cervicalgia (principal)
CPT/HCPCS: 97010; 97014; 97110; 97140; 97163; G0283

== ENCOUNTER 2022-09-25 09:22 | Emergency (ER) | payer BC, SELFPAY ==
[2022-09-25 09:35] VITALS: BP 176/90; PULSE 66; RESP 20; TEMP 36.9; O2SAT 98; BMI 25.7
--- NOTE | 2022-09-25 09:46 | EXP.UTC ---
Discharge Plan Disposition Patient Disposition: Home, Self-Care Condition: Good Prescriptions Prescriptions: New methylprednisolone [Medrol (Omega)] 4 mg tablets,dose pack See Rx Instructions .Route .COMPLEX 6 Days Qty: 21 0RF Rx Instructions: taper pack; guaifenesin [Mucinex] 600 mg tablet extended release 12hr 600 - 1,200 mg PO BID PRN (Reason: cough) Qty: 20 0RF azithromycin [Zithromax Z-Omega] 250 mg tablet See Rx Instructions .ROUTE .COMPLEX 5 Days Qty: 6 0RF Rx Instructions: For 250 mg dose pack: take 500 mg today (day 1), then 250 mg for 4 days (days 2-5) No Action levothyroxine 100 MCG tablet 100 mcg PO DAILY Referrals Follow up/Referrals: Jake Colvin MD [Primary Care Provider] - See instructions Activity Restrictions/Add. Instructions Additional Instructions/Restrictions: *Monitor Temp, Over the counter Motrin or Tylenol as directed/as needed Tylenol every 4 hours and Motrin every 6 hours (as long as your family doctor has told you that you can take it) for fever or pain. and straight to ER if unable to lower temp less than 101.0 after medication given *Warm salt water gargles may help to soothe the throat *Throat Lozenges? *Warm fluids like tea with honey may help to soothe the throat? *Sleep elevated *Humidifier/Vaporizer Your throat swab was sent for culture. Those results are typically sent to your primary care. Be sure to follow up in 2-3 days with your family doctor/primary care physician if no improvement so they can review those result and treat if necessary. If you don?t have a primary care doctor, I recommend you get one but in the mean time, you will have to return to a walk in clinic Follow up IMMEDIATELY for new or worsening symptoms or no Noticeable improvement over the next 48-72 hours. 911 for difficulty breathing or swallowing Clinical Impressions Clinical Impression: Pharyngitis Instructions Patient Instructions: Sore Throat, DI for Sinusitis Discharge ED Provider: Charo Husain [facility] General Stated complaint: cough, sore throat Mode of Arrival: Ambulatory Source of Information: Patient Limitations: No Limitations Time Seen by Provider: 09/25/22 09:47 Description of Symptoms (Recalled from Triage Doc. by RN): cough, sore throat HEENT Symptoms (Recalled from RN notes): Yes Resp Symptoms (Recalled from RN notes): No Skin Symptoms (Recalled from RN notes): No MS Symptoms (Recalled from RN notes): No Functional Status (Recalled from RN notes): n/a History of Present Illness Provider Complaint: Patient states that he has been having cough and sore throat States it has continued to get worse over the last few days and hurts when he swallows States that today he wasnt feeling any better so he came in to get checked Related Data Home Medications Medication Instructions Recorded Confirmed levothyroxine 100 mcg tablet 100 mcg PO DAILY THYROID 06/11/20 09/25/22 Previous Rx's Medication Instructions Recorded azithromycin 250 mg tablet See Rx Instructions PO .COMPLEX 5 09/25/22 (Zithromax Z-Omega) days #6 tabs guaifenesin 600 mg tablet, 600 - 1,200 mg PO BID PRN cough 09/25/22 extended release 12 hr (Mucinex) #20 tabs methylprednisolone 4 mg tablets in See Rx Instructions .Route 09/25/22 a dose pack (Medrol (Omega)) .COMPLEX 6 days #21 tabs Allergies Allergy/AdvReac Type Severity Reaction Status Date / Time Penicillins [PENICILLINS] Allergy Unknown Verified 09/25/22 09:43 Worker's Comp Is this a Worker's Comp case?: No PFS PFS Disclaimer: The information contained in this section may have been updated after the patient was seen, as this information can be updated by other users. Social History Smoking Status: Never smoker alcohol intake: current substance use type: denies use current occupational status: employed Travel in the last 8 weeks
[2022-09-25 10:03] LABS: UTC Strep Screen (Rapid) Negative (Negative)
[2022-09-25 10:17] VITALS: BP 176/90; PULSE 66; RESP 20; TEMP 36.9; O2SAT 98
== END 2022-09-25 10:17 | disposition home or self-care (01) ==
PROVIDERS: Emergency Provider Nurse Practitioner; PCP Family Medicine
DX: J02.9 Acute pharyngitis, unspecified (principal); R05.1 Acute cough
CPT/HCPCS: 87880; 99212; 99214; G0463

== ENCOUNTER 2023-03-12 11:36 | Emergency (ER) | payer BC, SELFPAY ==
[2023-03-12 12:20] VITALS: BP 135/91; PULSE 63; RESP 20; TEMP 36.9; O2SAT 100; BMI 26.6
--- NOTE | 2023-03-12 12:48 | EXP.UTC ---
Discharge Plan Disposition Patient Disposition: Home, Self-Care Condition: Good Prescriptions Prescriptions: New meclizine 25 mg tablet 25 mg PO TID PRN (Reason: dizziness) Qty: 12 0RF No Action levothyroxine 100 MCG tablet 100 mcg PO DAILY Referrals Follow up/Referrals: Dori Holden APRN [Nurse Practitioner] - 03/13/23 11:30 am Jake Colvin MD [Primary Care Provider] - See instructions Activity Restrictions/Add. Instructions Additional Instructions/Restrictions: Take medication as prescribed for dizziness Straight to the ER if head pressure, chest tightness/pain or any life threatening symptoms Follow up with Family Doctor as scheduled Return if needed Clinical Impressions Clinical Impression: Dizziness Stand Alone Forms Stand Alone Forms: Work/School Release Instructions Patient Instructions: Vertigo, DI for Vertigo, DI for Headache, Meclizine Discharge ED Provider: Charo Husain [facility] General Stated complaint: high BP, dizzy, lightheaded Mode of Arrival: Ambulatory Source of Information: Patient Limitations: No Limitations Time Seen by Provider: 03/12/23 12:48 Description of Symptoms (Recalled from Triage Doc. by RN): PATIENT C/O HEADACHE/PRESSURE, FEELING LIGHT-HEADED, AND ELEVATED BLOOD PRESSURE TODAY. HE REPORTS A BLOOD PRESSURE OF 140/101 AT HOME, AND STATES HE DID TAKE HIS BLOOD PRESSURE MEDICATION AFTER. HE STATES LAST NIGHT HE HAD SOME CHEST TIGHTNESS AND THOUGHT IT WAS INDIGESTION. HE DENIES ANY CHEST PAIN/TIGHTNESS AT THIS TIME HEENT Symptoms (Recalled from RN notes): Yes Resp Symptoms (Recalled from RN notes): No Skin Symptoms (Recalled from RN notes): No MS Symptoms (Recalled from RN notes): No Functional Status (Recalled from RN notes): WNL History of Present Illness Provider Complaint: Patient states that he is on blood pressure medication but only takes it when needed States that he woke up this morning with headache/pressure and feeling dizzy when he would stand up or move suddenly so he took his blood pressure medication and it is feeling better now headache is gone but still having some dizziness at times if he moves quickly Denies CP or pressure at this time States that he was at work and left to come here States that last night he thought he had some indigestion and took some medicine and laid down when he woke up it was gone Related Data Home Medications Medication Instructions Recorded Confirmed levothyroxine 100 mcg tablet 100 mcg PO DAILY THYROID 06/11/20 03/12/23 Previous Rx's Medication Instructions Recorded meclizine 25 mg tablet 25 mg PO TID PRN dizziness #12 tabs 03/12/23 Allergies Allergy/AdvReac Type Severity Reaction Status Date / Time Penicillins [PENICILLINS] Allergy Unknown Verified 09/25/22 09:43 Worker's Comp Is this a Worker's Comp case?: No [facility] Disclaimer: The information contained in this section may have been updated after the patient was seen, as this information can be updated by other users. Medical History (Updated 03/12/23 @ 13:06 by Charo Husain APRN) Hypertension Thyroid disease Social History Smoking Status: Never smoker alcohol intake: current substance use type: denies use current occupational status: employed Travel in the last 8 weeks: None household members: family housing: other current occupation: [employer] current occupational exposures/hazards: No ROS Obtained: Yes All systems reviewed & no additional complaints except as documented and Yes Systems reviewed as appropriate & no additional complaints except as documented Constitutional Constitutional: Reports system reviewed and no additional complaints, except as documented, Reports as per HPI and Reports headache(s) ENT Ears, Nose, Mouth, and Throat: Reports system reviewed and no additional complaints, except as documented, Reports as per HPI, Reports dizziness and R
[2023-03-12 13:08] VITALS: BP 135/91; PULSE 63; RESP 20; TEMP 36.9; O2SAT 100
== END 2023-03-12 13:10 | disposition home or self-care (01) ==
PROVIDERS: Emergency Provider Nurse Practitioner; PCP Family Medicine
DX: R51.9 Headache, unspecified (principal); R42 Dizziness and giddiness; I10 Essential (primary) hypertension; E03.9 Hypothyroidism, unspecified
CPT/HCPCS: 99212; 99214; G0463

== ENCOUNTER → 2023-03-13 23:19 | Outpatient (CLI) | payer BC, SELFPAY ==
[2023-03-13 17:35] LABS: T4 (Thyroxine) 7.9 ug/dl (5.53-11.0)
[2023-03-15 09:15] LABS: Triiodothyronine (T3) Free 3.5 pg/mL (2.0-4.4)
== END ==
LOC: LAB.DROPOF 23:20
PROVIDERS: PCP Nurse Practitioner Family; Visit Provider Nurse Practitioner Family
DX: E03.9 Hypothyroidism, unspecified (principal)
CPT/HCPCS: 84436; 84443; 84481

== ENCOUNTER → 2023-05-01 07:08 | Outpatient (CLI) | payer BC, SELFPAY ==
[2023-05-01 07:32] LABS: Basophils % 0.4 % (0.1-2.0); Eosinophils # 0.1 K/mm3 (0.0-0.4); Eosinophils % 1.5 % (0.1-12.0); Hematocrit 47.9 % (42.0-52.0); Hemoglobin 16.7 g/dL (14.1-18.0); Lymphocytes # 1.9 K/mm3 (0.7-4.5); Lymphocytes % 26.3 % (10-50); Mean Corpuscular HGB Conc 34.8 g/dL (31.8-35.4); Mean Corpuscular Hemoglobin 33.4 pg (27.0-31.2); Mean Platelet Volume 7.7 fl (7.4-10.4); Monocytes # 0.4 K/mm3 (0.1-1.0); Monocytes % 5.5 % (1.7-9.3); Neutrophils # 4.9 K/mm3 (1.8-7.8); Neutrophils % 66.3 % (37.0-80.0); Platelet Count 273 K/mm3 (142-424); Red Blood Count 4.99 M/mm3 (4.60-6.20); White Blood Count 7.3 K/mm3 (4.8-10.8)
[2023-05-01 07:56] LABS: Chloride 105 mmol/L (98-107); Potassium 4.5 mmoL/L (3.5-5.1); Sodium 141 mmol/L (136-145)
[2023-05-01 07:59] LABS: Alanine Aminotransferase 42 U/L (12-78); Albumin Level 4.6 g/dl (3.5-5.0); Albumin/Globulin Ratio 1.6 (1.1-1.8); Alkaline Phosphatase 64 U/L (38-126); Anion Gap 10.5 mEq/L (5-15); Aspartate Amino Transferase 37 U/L (17-59); Bilirubin,Total 0.6 mg/dl (0.2-1.3); Blood Urea Nitrogen 14 mg/dl (9-20); Carbon Dioxide 30 mmol/L (22.0-30.0); Estimated Glomerular Filt Rate 92 ml/min (>60); GFR (African American) 111 ML/MIN (>60); Globulin 2.9 g/dL (1.3-3.2); Total Protein,Serum 7.5 g/dl (6.3-8.2)
[2023-05-01 08:00] LABS: Glucose 112 mg/dl (74-100)
[2023-05-01 09:57] LABS: Vitamin B12 429 pg/mL (239-931)
[2023-05-04 05:53] LABS: Vitamin B1 116.4 nmol/L (66.5-200.0)
== END ==
PROVIDERS: PCP Nurse Practitioner Family; Visit Provider Nurse Practitioner Family
DX: R20.2 Paresthesia of skin (principal); E03.9 Hypothyroidism, unspecified; G47.8 Other sleep disorders; I10 Essential (primary) hypertension; R06.83 Snoring; R42 Dizziness and giddiness; R53.83 Other fatigue; R79.89 Other specified abnormal findings of blood chemistry; Z86.69 Personal history of other diseases of the nervous system and sense organs; F17.220 Nicotine dependence, chewing tobacco, uncomplicated
CPT/HCPCS: 36415; 80053; 82607; 82746; 84425; 84443; 85025

== ENCOUNTER → 2023-05-16 15:31 | Outpatient (CLI) | payer BC, SELFPAY ==
--- NOTE | 2023-05-16 15:34 | XR_ITS ---
FINAL REPORT CLINICAL HISTORY: right foot pain FINDINGS: Right foot Three views were obtained. There is no acute fracture or dislocation. The joint spaces appear normal. No soft tissue abnormality is identified. IMPRESSION: No acute process. Reviewed, Interpreted and Dictated by Reno Cazares MD Transcribed by Ruchi Millan Authenticated and [facility]
--- NOTE | 2023-05-16 15:34 | XR_ITS ---
FINAL REPORT CLINICAL HISTORY: cough, shortness of breath COMPARISON: 06/15/2020 FINDINGS: TWO-VIEW CHEST The heart size is normal. The mediastinum is normal. Surgical clips are seen in the medial right upper lobe. There is right apical pleural thickening, stable. There is no pneumothorax. IMPRESSION: No acute cardiopulmonary process. Reviewed, Interpreted and Dictated by Reno Cazares MD Transcribed by Ruchi Millan Authenticated and [facility]
[2023-05-16 17:04] LABS: Uric Acid 6.6 mg/dl (3.5-8.5)
[2023-05-16 17:31] LABS: Erythrocyte Sedimentation Rate 13 mm/hr (0-15)
[2023-05-18 08:28] LABS: RA Latex Turbid. 10.7 IU/mL (<14.0)
[2023-05-22 22:01] LABS: Antinuclear Antibodies (ANA) Negative; Antinuclear Antibodies, IFA Positive
== END ==
PROVIDERS: PCP Nurse Practitioner Family; Visit Provider Nurse Practitioner Family
DX: M79.671 Pain in right foot (principal); R05.9 Cough, unspecified; R06.02 Shortness of breath; M25.50 Pain in unspecified joint; R76.8 Other specified abnormal immunological findings in serum
CPT/HCPCS: 71046; 73630; 84550; 85651; 86038; 86225; 86235; 86431

== ENCOUNTER → 2023-06-27 10:49 | Outpatient (CLI) | payer BC, SELFPAY | LOC: SL 10:49 | PROVIDERS: PCP Nurse Practitioner Family; Visit Provider Nurse Practitioner Family | DX: G47.8 Other sleep disorders (principal); R06.83 Snoring; R53.83 Other fatigue; R42 Dizziness and giddiness; I10 Essential (primary) hypertension; E03.9 Hypothyroidism, unspecified; R20.2 Paresthesia of skin; G47.33 Obstructive sleep apnea (adult) (pediatric) | CPT/HCPCS: G0399 ==